=== PATIENT | female | born 1975 | race Caucasian/White ===

== ENCOUNTER 2018-04-29 15:38 | Outpatient (CLI) | payer BC | END 2018-04-29 15:39 | disposition home or self-care (01) | LOC: BICRAD 15:38 | PROVIDERS: ATTEND Family Medicine | DX: M54.6 Pain in thoracic spine (principal); M47.894 Other spondylosis, thoracic region; M41.9 Scoliosis, unspecified | CPT/HCPCS: 72072 ==

== ENCOUNTER 2018-09-23 23:04 | Emergency (ER) | payer BC | END 2018-09-23 23:50 | disposition home or self-care (01) | LOC: SCSER 23:04 | DX: H61.21 Impacted cerumen, right ear (principal); F17.210 Nicotine dependence, cigarettes, uncomplicated | CPT/HCPCS: 99284 ==

== ENCOUNTER 2019-08-04 06:53 | Outpatient (CLI) | payer BC ==
--- NOTE | 2019-08-04 08:54 | ULT ---
PELVIC ULTRASOUND: HISTORY: Abnormal uterine bleeding. TECHNIQUE: Transabdominal endovaginal imaging of the pelvis is performed. Overlies are interrogated with canalse s negrito, color flow, Doppler imaging, and spectral waveform analysis. FINDINGS: Uterus measures 5.9 x 6.1 x 10.1 cm. No evidence of a myometrial mass. Uterus is retroverted. Nabo thian cysts are noted in the cervix. Endometrium is homogeneously thickened measuring 3.8 cm. Right ovary has a normal echotexture measuring 3.3 x 2.2 x 1.7 cm. Left ovary has a normal echotexture measuring 3.5 x 1.7 x 1.3 cm. No free fluid. OVARIAN DOPPLER: Vascular flow to both ovaries. IMPRESSION: Homogeneous, thickened endometrium. Given patient's history, further evaluation with sonohysterogram or pelvic MRI is recommended to better assess the endometrium. CODE T POS: JAVIER
== END 2019-08-04 06:54 | disposition home or self-care (01) ==
LOC: BICULT 06:53
PROVIDERS: ATTEND Family Medicine
DX: N93.9 Abnormal uterine and vaginal bleeding, unspecified (principal); R93.89 Abnormal findings on diagnostic imaging of other specified body structures
CPT/HCPCS: 76856

== ENCOUNTER 2021-08-07 15:27 | Outpatient (CLI) | payer BC | END 2021-08-07 15:28 | disposition home or self-care (01) | LOC: BICMAMMO 15:27 | PROVIDERS: ATTEND Family Medicine | DX: Z12.31 Encounter for screening mammogram for malignant neoplasm of breast (principal) | CPT/HCPCS: 77063; 77067 ==